=== PATIENT | female | born 1960 | race Caucasian/White ===

== ENCOUNTER → 2023-09-21 08:09 | Outpatient (REF) | payer MEDICARE, SELFPAY | LOC: RAD 08:09 | PROVIDERS: ATTENDING PHYSICIAN Nurse Practitioner Primary Care; FAMILY PHYSICIAN Family Medicine | DX: C43.62 Malignant melanoma of left upper limb, including shoulder (principal) | CPT/HCPCS: 71046 ==

== ENCOUNTER → 2024-02-10 08:15 | Outpatient (REF) | payer MEDICARE, OTHER, SELFPAY | LOC: WDC 08:15 | PROVIDERS: ATTENDING PHYSICIAN Physician Assistant Medical | DX: Z12.31 Encounter for screening mammogram for malignant neoplasm of breast (principal) | CPT/HCPCS: 77063; 77067 ==

== ENCOUNTER → 2024-02-21 07:10 | Outpatient (REF) | payer MEDICARE, OTHER, SELFPAY | LOC: PAVMRI 07:10 | PROVIDERS: ATTENDING PHYSICIAN Physician Assistant Surgical; FAMILY PHYSICIAN Physician Assistant Medical | DX: M53.3 Sacrococcygeal disorders, not elsewhere classified (principal); M54.50 Low back pain, unspecified; M51.369 Other intervertebral disc degeneration, lumbar region without mention of lumbar back pain or lower extremity pain | CPT/HCPCS: 72148 ==

== ENCOUNTER → 2024-05-18 14:09 | Outpatient (REF) | payer MEDICARE, OTHER, SELFPAY | LOC: RAD 14:09 | PROVIDERS: ATTENDING PHYSICIAN Internal Medicine Rheumatology; FAMILY PHYSICIAN Physician Assistant Medical | DX: M81.0 Age-related osteoporosis without current pathological fracture (principal); Z13.820 Encounter for screening for osteoporosis | CPT/HCPCS: 77080 ==

== ENCOUNTER → 2025-02-15 17:17 | Outpatient (REF) | payer MEDICARE, OTHER, SELFPAY | LOC: WDC 17:17 | PROVIDERS: ATTENDING PHYSICIAN Obstetrics & Gynecology Gynecology; FAMILY PHYSICIAN Physician Assistant Medical | DX: Z12.39 Encounter for other screening for malignant neoplasm of breast (principal); Z12.31 Encounter for screening mammogram for malignant neoplasm of breast | CPT/HCPCS: 77063; 77067 ==